=== PATIENT | male | born 1950 | race Two or more races ===

== ENCOUNTER 2024-04-16 16:49 | Emergency (ER) | payer OTHER ==
[2024-04-16 17:01] VITALS: BP 133/71; PULSE 117; RESP 16; TEMP 98.6; BMI 18.6
[2024-04-16] MEDS ORDERED: diphenhydrAMINE HCL 25 MG CAPSULE (FP) PO ONE (18:39)
[2024-04-16] MEDS: diphenhydrAMINE HCL 25 MG CAPSULE (FP) PO ONE (18:40)
[2024-04-16 20:11] LABS: URINE APPEARANCE CLEAR; URINE BILIRUBIN NEGATIVE (NEGATIVE); URINE COLOR YELLOW; URINE GLUCOSE (UA) NEGATIVE (NEGATIVE); URINE KETONE NEGATIVE (NEGATIVE); URINE LEUK ESTERASE NEGATIVE (NEGATIVE); URINE NITRITE NEGATIVE (NEGATIVE); URINE PROTEIN NEGATIVE (NEGATIVE); URINE UROBILINOGEN 0.2 mg/dL (0.2-1.0)
== END 2024-04-16 20:12 | disposition home or self-care (01) ==
LOC: JER 16:49
DX: G47.00 Insomnia, unspecified (principal); F41.9 Anxiety disorder, unspecified; N40.1 Benign prostatic hyperplasia with lower urinary tract symptoms; R35.1 Nocturia
CPT/HCPCS: 81003; 87086; 93005; 93010; 99284-25